=== PATIENT | female | born 2005 | race Caucasian/White ===

== ENCOUNTER 2023-08-30 21:34 | Emergency (ER) | payer SELFPAY ==
[~2023-08-30] VITALS: Ht 165.1 cm; Wt 137.0 kg
[2023-08-30 21:42] VITALS: O2SAT 99
[2023-08-30 23:52] LABS: BASOPHILS % 0.8 % (0.0-2.0); EOSINOPHILS % 0.2 % (0.0-5.0); HEMATOCRIT. 35.2 % (36.0-48.0); HEMOGLOBIN. 10.6 g/dL (12.0-16.0); LYMPHOCYTES % 35.9 % (20.0-50.0); MEAN CORPUSCULAR HEMOGLOBIN 19.7 pg (28.0-32.0); MEAN CORPUSCULAR HGB CONC 30.2 g/dL (31.0-37.0); MEAN CORPUSCULAR VOLUME 65.1 fL (81.0-99.0); MEAN PLATELET VOLUME 9.1 fl (7.4-10.4); MONOCYTES % 7.5 % (2.0-8.0); NEUTROPHILS % 55.6 % (40.0-76.0); PLATELET 697 x1000/uL (130-400); RED CELL DISTRIBUTION WIDTH 28.6 % (11.6-14.6); WHITE BLOOD COUNT 18.4 x1000/uL (4.5-11.0)
[2023-08-30 23:56] LABS: CHLORIDE 105 mEq/L (98-107); POTASSIUM 3.2 mEq/L (3.5-5.1); SODIUM 137 mEq/L (136-145)
[2023-08-30 23:58] LABS: CALCIUM 8.9 mg/dL (8.7-10.4); CARBON DIOXIDE 22 mEq/L (21-32)
[2023-08-31 00:01] LABS: ADD RBC MORPHOLOGY YES; DIFFERENTIAL COMMENT 1
[2023-08-31 00:02] LABS: CREATININE 0.8 mg/dL (0.6-1.0)
[2023-08-31 00:03] LABS: GLUCOSE 111 mg/dL (70-105); UREA NITROGEN BLOOD 19 mg/dL (9-23)
[2023-08-31 01:26] LABS: CLARITY URINE CLOUDY (CLEAR); COLOR URINE DARK YELLOW (YELLOW); GLUCOSE URINE NEGATIVE (NEGATIVE); KETONES URINE NEGATIVE (NEGATIVE); LEUKOCYTE ESTERASE URINE 1+ (NEGATIVE); NITRITE URINE NEGATIVE (NEGATIVE); OCCULT BLOOD URINE TRACE (NEGATIVE); PH URINE 5.5 (4.5-8.0); PROTEIN URINE 1+ (NEGATIVE); SPECIFIC GRAVITY URINE 1.035 (1.005-1.030)
[2023-08-31] MEDS: CEFTRIAXONE SODIUM 500MG VIAL IM ONE (01:37)
[2023-08-31 01:48] LABS: HYPOCHROMASIA 1+; MICROCYTOSIS 1+; PLATELET ESTIMATE INCREASED
[2023-08-31 01:53] LABS: BACTERIA URINE 3+; RBC URINE TNTC /hpf (0-2); SQUAMOUS EPITHELIAL CELL URINE 2+ /lpf (RARE/1+); WBC URINE TNTC /hpf (0-2)
[2023-08-31] MEDS: DIPHENHYDRAMINE 50MG/ML VIAL IM ONE (03:22)
[2023-08-31] MEDS ORDERED: NITR-87 MT (04:42)
[2023-08-31] MEDS ORDERED: HYDR-4001 MT (04:42)
[2023-08-31 05:03] VITALS: BP 110/69; PULSE 90; RESP 18; TEMP 98.6
[2023-09-01 19:11] LABS: CHLAMYDIA TRACHOMATIS NAA Negative (Negative); NEISSERIA GONORRHOEAE NAA Negative (Negative)
== END 2023-08-31 05:08 | disposition home or self-care (01) ==
LOC: ER 21:34
DX: N39.0 Urinary tract infection, site not specified (principal); N83.201 Unspecified ovarian cyst, right side
CPT/HCPCS: 99285; 80048; 85025; 36415; 76830; 76856; 87491; 87591; 81003; 81025; 87086; 96372; J0696; J1200